=== PATIENT | female | born 1945 | race Caucasian/White ===

== ENCOUNTER → 2016-09-24 | Outpatient (CLI) | payer BC ==
[~2016-09-24] MED LIST: B-CO1TAB21 PO; CALC500C70 PO; GLUCTAB7 PO; MACUHEALTH PO; MULTTAB58 PO; OXYC1CAP5 PO; SIMV40TA2 PO; VITAMIN D PO
--- NOTE | 2016-09-24 14:20 | DIAGNOSTIC IMAGING REPORT ---
TWO VIEW CHEST CLINICAL HISTORY: Dyspnea. FINDINGS: PA and lateral chest radiographs are compared to study dated 11/02/2013. The cardiomediastinal silhouette is unremarkable. There is atherosclerotic calcification of the thoracic aorta. The lungs and pleural spaces are clear. There is no pneumothorax. The skeletal structures are osteopenic. The bony thorax appears intact. A left shoulder arthroplasty is partially visualized. IMPRESSION: No active disease in the chest. Electronically signed by: Varun Arias M.D. 09/24/2016 2:19 PM Dictated Date/Time: 09/24/2016 2:18 PM
--- NOTE | 2016-09-26 11:53 | PULMONARY FUNCTION TEST ---
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 LUNG VOLUMES: Within normal limits. DIFFUSION CAPACITY: Within normal limits. INTERPRETATION: Mild obstructive ventilatory disease.
== END | disposition home or self-care (01) ==
LOC: C.RC 12:56
PROVIDERS: ATTEND Nurse Practitioner
DX: R06.02 Shortness of breath (principal); M25.473 Effusion, unspecified ankle

== ENCOUNTER → 2016-12-26 | Outpatient (CLI) | payer BC | END | disposition home or self-care (01) | LOC: C.MAMM 13:38 | PROVIDERS: ATTEND Family Medicine | DX: Z09 Encounter for follow-up examination after completed treatment for conditions other than malignant neoplasm (principal); M85.851 Other specified disorders of bone density and structure, right thigh; M85.852 Other specified disorders of bone density and structure, left thigh ==

== ENCOUNTER → 2017-08-05 | Outpatient (CLI) | payer BC ==
--- NOTE | 2017-08-06 15:35 | MAMMOGRAPHY REPORT ---
BILATERAL DIGITAL SCREENING MAMMOGRAM TOMOSYNTHESIS WITH CAD: 08/05/2017 CLINICAL HISTORY: Routine screening. Patient has no complaints. TECHNIQUE: Breast tomosynthesis in addition to standard 2D mammography was performed. Current study was also evaluated with a Computer Aided Detection (CAD) system. COMPARISON: Comparison is made to exams dated: 06/07/2016 mammogram, 06/02/2015 mammogram, 05/30/2014 daina mogram, 05/27/2013 mammogram, 05/07/2012 mammogram, and 05/06/2011 mammogram - [facility]ter. BREAST COMPOSITION: There are scattered areas of fibroglandular density in both breasts. FINDINGS: There is a stable benign 17 mm oval circumscribed mass in the upper outer anterior left zahra ast, that is stable in size dating back to at least 2007. Stable asymmetries in the right upper oute r quadrant and stable benign intramammary lymph nodes in each lateral breast. No new suspicious mass , architectural distortion or cluster of microcalcifications is seen. IMPRESSION: ACR BI-RADS CATEGORY 1: NEGATIVE There is no mammographic evidence of malignancy. A 1 year screening mammogram is recommended. The pa tient will receive written notification of the results. Approximately 10% of breast cancers are not detected with mammography. A negative mammographic report should not delay biopsy if a clinically suggestive mass is present. Georgette Rebolledo M.D. ay/:08/05/2017 16:44:40 [employer]: Sonya Butler RT(R)(M)(BD), [facility] letter sent: Normal 1/2 BI-RADS Code: ACR BI-RADS Category 1: Negative
== END | disposition home or self-care (01) ==
LOC: C.MAMM 11:23
PROVIDERS: ATTEND Obstetrics & Gynecology
DX: Z12.31 Encounter for screening mammogram for malignant neoplasm of breast (principal)

== ENCOUNTER → 2017-08-12 | Outpatient (CLI) | payer BC ==
--- NOTE | 2017-08-12 11:54 | DIAGNOSTIC IMAGING REPORT ---
CHEST 2 VIEWS ROUTINE HISTORY: 72 years-old Female COUGH chronic cough with shortness of breath COMPARISON: Chest radiograph 09/24/2016 TECHNIQUE: PA and lateral views of the chest FINDINGS: Cardiomediastinal and hilar silhouettes are within normal limits. Atherosclerosis of the aorta. There is no pneumothorax, pleural effusion, focal airspace consolidation or overt pulmonary edema. Bones of the chest appear grossly intact. Left shoulder arthroplasty noted. IMPRESSION: No acute process. The above report was generated using voice recognition software. It may contain grammatical, syntax or spelling errors. Electronically signed by: Kieran Tariq M.D. 08/12/2017 11:52 AM Dictated Date/Time: 08/12/2017 11:50 AM
== END | disposition home or self-care (01) ==
LOC: C.RADBC 11:24
PROVIDERS: ATTEND Family Medicine
DX: R06.02 Shortness of breath (principal); R05 Cough

== ENCOUNTER → 2017-08-21 | Outpatient (CLI) | payer BC ==
[~2017-08-21] MED LIST changes: +OPTIRAY 320 IV PRN
--- NOTE | 2017-08-21 13:15 | DIAGNOSTIC IMAGING REPORT ---
CT (CHEST) THORAX WITH CT DOSE: 433.09 mGycm HISTORY: Dyspnea SOB, COUGH TECHNIQUE: Multiaxial CT images of the chest were performed following the intravenous administration of contrast. A dose lowering technique was utilized adhering to the principles of ALARA. COMPARISON: None. FINDINGS: The lungs are clear. The mediastinal vascular structures are within normal limits. No mediastinal or hilar lymphadenopathy. No pleural effusion or pneumothorax. Limited views of the upper abdomen demonstrate a normal liver and spleen. Small calcified granuloma left upper lung. Minimal nonspecific interstitial change right base. Slight peribronchial thickening. IMPRESSION: 1. Slight peribronchial thickening of the lower lung regions bilaterally. 2. Minimal nonspecific interstitial change right base. 3. Otherwise negative CT of the chest. The above report was generated using voice recognition software. It may contain grammatical, syntax or spelling errors. Electronically signed by: Joe Park M.D. 08/21/2017 1:13 PM Dictated Date/Time: 08/21/2017 1:10 PM
== END | disposition home or self-care (01) ==
LOC: C.CTS 12:18
PROVIDERS: ATTEND Family Medicine
DX: R05 Cough (principal); R06.02 Shortness of breath